=== PATIENT | male | born 1990 | race Caucasian/White ===

== ENCOUNTER 2025-06-01 03:33 | Emergency (ER) | payer MEDICAID ==
[~2025-06-01] VITALS: Ht 190.5 cm; Wt 88.6 kg
[~2025-06-01 03:33] MED LIST: OLAN10TA73 PO; TRAZ-251 PO; gabapentin capsule PO
[2025-06-01 03:48] VITALS: BP 113/75; PULSE 67; RESP 17; TEMP 97.4; O2SAT 99
--- NOTE | 2025-06-01 04:19 | Physician Documentation ---
History of Present Illness ~ Chief Complaint: Foot pain Stated Complaint: HEAD PAIN Time Seen by MD: 04:14 HPI This is a 35-year-old gentleman who lives in [place] near [place], and somehow ended up here, presents for evaluation of several months of a painful muscle spasms in his bilateral feet. No obvious trigger, trauma provocation. It is exacerbated by walking. He currently does not own any shoes and that makes it worse. Ibuprofen Tylenol did not really help. There was no particular reason for him to present to the emergency department today, the pain is not worse, not better than any other day for the last several months. He reported back pain to the nursing staff during triage but currently denies it to me. Denies any concern for tobacco, alcohol or illicit substances use Medication Reconciliation Allergies: Coded Allergies: NSAIDS (Non-Steroidal Anti-Inflamma (Verified Allergy, Unknown, 10/07/24) Penicillins (Verified Allergy, Unknown, 10/07/24) Scheduled Olanzapine (Olanzapine), 10 MG PO HS [gabapentin capsule], 300 MG PO TID Scheduled PRN Trazodone HCl (Trazodone HCl), 50 MG PO HS PRN for SL Past Medical History Patient History: Patient reports no known family medical history. Review of Systems ROS 10 point review of systems was performed and unless noted above in HPI is negative for acute process/complaint. Physical Exam Vital Signs: Temperature: 97.4, Source: Temporal, Heart Rate: 67, Respiratory Rate: 17, BP: 113/75, Pulse Oximetry: 99, Weight: 88.600 Physical Exam Physical examination: GENERAL: Awake, alert, oriented, GCS 15, no apparent distress, non-toxic appearing, answers questions, follows commands appropriately. Disheveled appearance with a stigmata of homelessness. HEENT: Atraumatic, normocephalic, pupils equal, extraocular muscles intact Active gross movements, sclerae anicteric, mucus membranes moist, no stridor. NECK: Midline, no JVD CARDIOVASCULAR: Good skin perfusion without evidence of pallor, mottling. PULMONARY: Nonlabored, symmetric chest rise, no audible wheezing, no accessory muscle use, no respiratory distress, speaking in full sentences. GASTROINTESTINAL: Not distended. NEUROLOGIC: Lucid with normal mental status. Normal facial symmetry. Moves all extremities symmetrically and with purpose. No truncal ataxia. Speech is fluid without evidence of dysarthria or aphasia, no focal deficits appreciated. EXTREMITIES: Acute deformities Skin: warm, dry PSYCHIATRIC: Normal affect, normal insight, normal concentration. Focused exam: [] Bilateral feet are intact, no deformity, no bleeding, no purulent discharge. Neurovascularly intact. He is able to ambulate. He is not wearing shoes. Progress Results/Orders Results/Orders Vital Signs 06/01/25 03:48 Temp 97.4 Pulse 67 Resp 17 B/P (MAP) 113/75 Pulse Ox 99 Medical Decision Making Findings Facility Status: ED Holds, RME process The plan was discussed with the patient, who demonstrates clear understanding of the plan and is in agreement with the plan unless otherwise noted in the chart. All questions have been answered, all concerns were addressed unless otherwise documented. I was available throughout their ED stay for frequent reassessment and questions. Differential Diagnoses (considered and possible or likely): [Muscle spasm, stress fractures, muscle fatigue, unlikely rhabdomyolysis, unlikely fracture or dislocation] ??Differential Diagnoses (considered and unlikely, not requiring evaluation currently): [No evidence of neurovascular injury, denies any trauma] MDM Data Please see [facility] for the following: Independent Historians and external Records Review. Historian: [Patient] Independent Historians: ?[None] Medication Management: [Reviewed medication list] Social History and determinants: [Reviewed] Please see the body of the note for the following: Any independent interpretations of ECG, imaging studies. All vitals signs/haemodynamics, ordered tests were independently reviewed and interpreted by myself. Nursing triage complaint and vitals reviewed, additional nursing notes were reviewed as available and I agree unless otherwise noted or documented in contradiction in the chart Vital Signs: Independently reviewed Labs: Independently interpreted Imaging: Independently interpreted Old Medical Records: Independently reviewed, see HPI for relevant summary and information Additionally notably showing: [Hemodynamically stable] Tests considered but not ordered include: [Hematologic workup and imaging has been considered but does not appear to be necessary given clinical nature of diagnosis] Social Determinants of Health Impact: Patient was evaluated in [facility] [place] to healthcare due to below par ratio of patient to medical providers. [] Comorbid Conditions Impacting Present Evaluation and Care/Treatment: [None] Management Discussions with other Healthcare Providers: [None] Treatment and Disposition Medication Management (Given or considered): []. See EMR for details Consideration for Hospitalization/Escalation/Deescalation of Care: Admission for observation has been considered, [however the patient is able to tolerate p.o., their symptoms are controlled, they are able to rely on oral medications, and their chief complaint/diagnosis can be managed on outpatient basis.] ?ED Course:?[No clinical deterioration] ?Shared decision making:?[Patient is hemodynamically stable for discharge home with follow with their primary care provider. [ ] Specific and cautious return precautions provided and discussed with full understanding. Any incidental findings were also discussed and follow up recommendations given. [] All questions answered. Patient/family were able to verbalize back return precautions. Patient/family agree to plan. Copies of imaging and laboratory studies were provided.] Code status:?FULL Please see the full Electronic Medical Record for full details of nursing documentation, medications list, other records of complete past medical history and conditions, vital signs, laboratory studies, and any radiologic study interpretations by radiologists. Portions of this note were completed using [email or web address] dictation software and as a result there may exist minor errors in spelling. I have reviewed elements of past family and social history and agree as included in note. Departure Disposition: HOME / SELF CARE / HOMELESS Impression: Primary Impression: Foot pain Additional Impression: Foot spasms Condition: Stable Discharge Instructions: Foot Pain Referrals: NO PRIMARY CARE PROVIDER (PCP) Prescriptions Gabapentin (Neurontin) 300 Mg Capsule 1 CAP PO Q8H for 10 Days, #30 CAP 0 Refills Prov: PRADEEP SMITH DO 06/01/25 Cyclobenzaprine HCl (Cyclobenzaprine HCl) 5 Mg Tablet 1 TAB PO TID PRN PRN for muscle spasms for 10 Days, #30 TAB 0 Refills Prov: PRDAEEP SMITH DO 06/01/25 Naproxen (Naproxen) 500 Mg Tablet 1 TAB PO Q12H, #20 TAB Prov: PRADEEP SMITH DO 06/01/25 Education Educated: Patient Educated regarding: diagnosis, treatment, prognosis, need for follow up Signature Scribe Signature: No scribe Attestation: Date: Jun 01, 2025 Time: 04:22 This note accurately reflects clinical decisions, work performed by myself, Pradeep Smith, PRADEEP GUTIERRES DO Jun 01, 2025 04:19
[2025-06-01] MEDS ORDERED: CYCL-920 PO (04:21)
[2025-06-01] MEDS ORDERED: NAPR-56 PO (04:21)
[2025-06-01] MEDS ORDERED: GABA300C PO (04:21)
== END 2025-06-01 05:06 | disposition home or self-care (01) ==
LOC: ER 03:34
DX: M79.672 Pain in left foot (principal); M79.671 Pain in right foot; M62.838 Other muscle spasm; Z88.6 Allergy status to analgesic agent; Z88.0 Allergy status to penicillin; Z79.899 Other long term (current) drug therapy
CPT/HCPCS: 99283

== ENCOUNTER 2025-08-02 14:52 | Emergency (ER) | payer MEDICAID ==
[~2025-08-02] VITALS: Ht 182.9 cm; Wt 83.3 kg
[~2025-08-02 14:52] MED LIST changes: +CYCL-920 PO; +GABA300C PO
[2025-08-02 15:04] VITALS: BP 114/78; PULSE 76; RESP 18; TEMP 97.6; O2SAT 98
--- NOTE | 2025-08-02 15:22 | Physician Documentation ---
History of Present Illness ~ Chief Complaint: Mental Health Eval Stated Complaint: MH Time Seen by MD: 15:18 HPI 35-year-old male presents to the ED stating he wanted to be evaluated mentally however he states that he would [facility] just go to the [facility]. Denies any HI or SI denies any auditory or visual hallucination. Patient said he does have a history of depression and anxiety and is going to seek treatment in the outpatient setting . Day of Onset: Aug 02, 2025 Medication Reconciliation Allergies: Coded Allergies: NSAIDS (Non-Steroidal Anti-Inflamma (Verified Allergy, Unknown, 08/02/25) Penicillins (Verified Allergy, Unknown, 08/02/25) Scheduled Gabapentin (Neurontin), 1 CAP PO Q8H Olanzapine (Olanzapine), 10 MG PO HS [gabapentin capsule], 300 MG PO TID Scheduled PRN Cyclobenzaprine HCl (Cyclobenzaprine HCl), 1 TAB PO TID PRN PRN for muscle spasms Trazodone HCl (Trazodone HCl), 50 MG PO HS PRN for SL Past Medical History Patient History: Patient reports no known family medical history. Review of Systems All Other Systems at this time: Reviewed and Negative ROS As stated above in the HPI, otherwise all systems are reviewed and negative. Physical Exam Vital Signs: Temperature: 97.6, Source: Temporal, Heart Rate: 76, Respiratory Rate: 18, BP: 114/78, Pulse Oximetry: 98, Weight: 83.300 Oxygen Flow Rate: 0 Physical Exam General: Alert, no apparent distress. HEENT: PERRL, EOMI, no injection, moist mucous membranes. Neck: Full range of motion. Respiratory: Lungs clear, no respiratory distress. Chest: No accessory muscle use. Cardiovascular: Regular rate and rhythm, no murmurs. Gastrointestinal: Soft, nontender, nondistended. Bowels sounds present. Extremities: Normal range of motion, no deformity. Neurologic: Oriented x4. Psychiatric: Normal mood and affect. Skin: Normal color, warm and dry. No edema, no ecchymosis. Progress Results/Orders Results/Orders Vital Signs 08/02/25 15:04 Temp 97.6 Pulse 76 Resp 18 B/P (MAP) 114/78 Pulse Ox 98 O2 Flow Rate 0 Medical Decision Making Additional information obtaine: old records Findings Patient does not present acutely psychotic is A&O x4 alert and appropriate I did offer some medication for anxiety however he declined. At this time I do not see any reason to pursue a psychiatric hold as he does not meet criteria. Going to provide him a bus pass to get back to the [facility] and some nourishment prior to discharge Differential Dx:Considerations: Include: Alcohol abuse, Anxiety, Bipolar disorder, Conversion disorder, Depression, Encephaloathy, Homicidal, Panic disorder, Personality disorder, Schizophrenia, Substance abuse, Suicidal, Other Departure Disposition: 01 HOME / SELF CARE / HOMELESS Impression: Primary Impression: Anxiety Additional Impression: Depression Condition: Stable Discharge Instructions: Depression, Adult Referrals: NO PRIMARY CARE PROVIDER (PCP) Signature Scribe Signature: o Attestation: Scribed for Niko Torres Speech Correction Consultant by Niko Low NP . 08/02/25 20:50 NIKO TORRES NP Aug 02, 2025 15:22
== END 2025-08-02 15:35 | disposition home or self-care (01) ==
LOC: ER 14:53
DX: F41.9 Anxiety disorder, unspecified (principal); F32.A Depression, unspecified; Z88.6 Allergy status to analgesic agent; Z88.0 Allergy status to penicillin; Z79.899 Other long term (current) drug therapy
CPT/HCPCS: 99282

== ENCOUNTER 2025-08-03 05:43 | Emergency (ER) | payer MEDICAID ==
[~2025-08-03] VITALS: Ht 190.5 cm; Wt 82.4 kg
[2025-08-03 05:51] VITALS: RESP 16
== END 2025-08-03 07:17 | disposition left against medical advice (07) ==
LOC: ER 05:43
DX: F41.9 Anxiety disorder, unspecified (principal); Z53.21 Procedure and treatment not carried out due to patient leaving prior to being seen by health care provider; Z88.0 Allergy status to penicillin; Z88.6 Allergy status to analgesic agent
CPT/HCPCS: 99281